=== PATIENT | female | born 1960 | race Caucasian/White ===

== ENCOUNTER 2017-04-10 08:13 | Outpatient (CLI) | payer BC | END 2017-04-10 08:14 | disposition home or self-care (01) | LOC: BICCT 08:13 | PROVIDERS: ATTEND Orthopaedic Surgery | DX: M54.5 Low back pain (principal); M47.816 Spondylosis without myelopathy or radiculopathy, lumbar region; N20.0 Calculus of kidney | CPT/HCPCS: 72131 ==

== ENCOUNTER 2017-05-22 08:12 | Outpatient (CLI) | payer BC ==
--- NOTE | 2017-05-22 11:48 | MRI ---
MRI OF THE LEFT KNEE: DATE: 05/22/17. PROVIDED CLINICAL HISTORY: Left knee pain. FINDINGS: The anterior cruciate ligament, posterior cruciate ligament, mediolateral collateral ligament, and la teral collateral ligamentous complex demonstrate an intact MR appearance, as does the extensor mechan ism. There is subtle grade III signal present involving the body of the lateral meniscus at the tibial art icular surface suspicious for a nondisplaced radial tear. The medial meniscus demonstrates no eviden ce for tear. No focal articular cartilage defect is apparent. The amount of fluid within the knee joint appears physiologic. No focal concerning regional marrow or muscular signal abnormality is apparent. IMPRESSION: Findings suspicious for small partial-thickness nondisplaced radial tear involving the body of the la teral meniscus. POS: [facility]
== END 2017-05-22 08:13 | disposition home or self-care (01) ==
LOC: MRI 08:12
PROVIDERS: ATTEND Family Medicine
DX: S83.242A Other tear of medial meniscus, current injury, left knee, initial encounter (principal)

== ENCOUNTER 2017-07-24 08:07 | Outpatient (CLI) | payer BC ==
--- NOTE | 2017-07-24 10:50 | MRI ---
RIGHT KNEE MRI WITHOUT IV CONTRAST: Date: 07/24/17 HISTORY: 56-year-old female with history of right knee pain without associated injury, meniscal tear, recurrin g injury. FINDINGS: No evidence of joint effusion. Medial and lateral menisci, anterior and posterior cruciate ligaments, collateral ligament complexes, and quadriceps and patellar tendons and extensor mechanism are unrema rkable. No acute osteochondral defect. No abnormal marrow signal. IMPRESSION: No MRI evidence for significant acute internal derangement. POS: [facility]
== END 2017-07-24 08:08 | disposition home or self-care (01) ==
LOC: MRI 08:07
PROVIDERS: ATTEND Orthopaedic Surgery
DX: S83.206A Unspecified tear of unspecified meniscus, current injury, right knee, initial encounter (principal)

== ENCOUNTER 2017-08-10 07:39 | Outpatient (CLI) | payer BC ==
--- NOTE | 2017-08-10 13:56 | MRI ---
MRI RIGHT SHOULDER WITHOUT CONTRAST: Date: 08/10/17 HISTORY: Shoulder pain. COMPARISON: None. FINDINGS: Biceps Tendon: Prior tenodesis biceps tendon at the intertrabecular groove. No intra-articulo biceps tendon is prese nt. Labrum: There is abnormal fluid signal within the superior labrum with evidence of prior labral repair, which may reflect a retear. There is adjacent superior glenoid cartilage thinning. Rotator Cuff: There is mild bursal and articular surface fraying of the supraspinatus and infraspinatus tendons wit hout full thickness perforation. Muscles: Muscle signal and bulk are normal. Bones: There are traction cysts of the greater tuberosity at the supraspinatus tendon and footplate, and inf raspinatus tendon footplate. There is a Type A os acromiale with fluid along the synchondrosis. Mild degenerative disease acromioc lavicular joint. IMPRESSION: 1. 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 2. Evidence of prior labral repair with normal increased fluid signal within the labrum, a sequelae of retear. 3. Prior tenodesis biceps tendon. 4. Mild subacromial/subdeltoid bursal effusion. 5. Mid bursal and articular surface fraying of the rotator cuff otherwise intact. 6. 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 POS: [facility]
== END 2017-08-10 07:40 | disposition home or self-care (01) ==
LOC: SCSMRI 07:39
PROVIDERS: ATTEND Orthopaedic Surgery
DX: M94.211 Chondromalacia, right shoulder (principal); M25.411 Effusion, right shoulder; Z98.890 Other specified postprocedural states

== ENCOUNTER 2017-09-04 08:03 | Outpatient (CLI) | payer BC ==
[2017-09-04] MEDS ORDERED: Iopamidol 370 76% 100 ML VIAL ONE (09:41)
--- NOTE | 2017-09-06 00:54 | HP ---
HISTORY OF PRESENT ILLNESS: A 57-year-old female followed by Dr. Moody. The patient was last seen by me in 04/2010. She is a bariatric patient. In 04/2010, she weighed 129 pounds with a BMI of 22 and I removed 0.25 mm from her band. Her lap band was [place] in [address] Esparza in [place], at th at time she had a BMI of 28. She had this band removed in 2014, converted to a gastric sleeve. She has a history of abdominoplasty with Dr. Kaiden Quinn in 2010, has a history of laparoscopies, lap aroscopic 5 x 10 cm mesh repair of ventral hernia in upper abdomen 02/19/2010 had been performed. Wilmer ramirez reports cramping and feeling gassy in midepigastric left subxiphoid at times. She firs saw us more than 15 years ago. She reports taking [id number] medications to resolve this without reliable relief taking medications such as Nexium and Protonix. These episodes she complains of last 36 occu rred 2-3 times a week, sometimes associated with meals. She denies noting any hernia mass on exam. Exam in my office did not reveal a hernia. She was having this discomfort. At that time, she had he r conversion of her band to sleeve, and there is no mention of a hernia found at that encounter. She had lumbar surgery four years ago, right shoulder surgery in 2017, left shoulder surgery in 2018. S he has undergone a CT scan of abdomen and pelvis at [facility] on 09/04/2017, and ultrasound rev ealing a small 1-2 mm gallbladder polyp and a right renal cyst. CAT scan of the abdomen and pelvis, otherwise unremarkable except for the renal cyst. The patient has typical symptoms of biliary diseas e. With her gallbladder, a small gallbladder polyp or density seen on ultrasound and suggestion of b iliary disease. I have talked to her about laparoscopic cholecystectomy. I have told her I cannot 1 00% guarantee this will relieve her symptoms, but with her symptoms classically biliary, this would p robably benefit her. I do not think she is up-to-date on her colonoscopies. I do not think that she needs an upper endoscopy. Risk of infection, bleeding, visceral and biliary injury explained. She consents. ALLERGIES: MORPHINE, pruritus. TOBACCO: None. ALCOHOL: Rarely. MEDICATIONS: Vitamin C, vitamin D, protein supplements. PAST MEDICAL HISTORY: As noted above, hysterectomy, abdominoplasty, breast surgery, laparoscopic ban d placement, conversion to a sleeve, laparoscopic mesh repair of incisional hernia. REVIEW OF SYSTEMS: A 10-point noncontributory. FAMILY HISTORY: Noncontributory. SOCIAL HISTORY: Father is alive. Mother of lung disease. No family history of coronary ar yeni disease that she knows of. PHYSICAL EXAMINATION: VITAL SIGNS: Weight 139 pounds, height 5 feet 3 inches, blood pressure 122/76, pulse 64, and tempera ture 97 degrees. HEENT: Unremarkable. LUNGS: Clear to auscultation. CARDIAC: Regular rate and rhythm without murmur or gallop. ABDOMEN: Soft, nontender. No hernia masses appreciated. EXTREMITIES: Unremarkable. No ankle edema. NEUROLOGIC: Neurologically intact. LYMPH: No lymphadenopathy. Axilla, neck, groins, palpable carotid pulses. ASSESSMENT AND PLAN: Biliary type symptoms with gallbladder polyp, 2 mm were seen. Recommendations as above. We will schedule when she decides to call. I have informed her that if the symptoms are n ot too bothersome, she can avoid this operation, but she wishes to proceed, hopefully, it can relieve her intermittent discomfort.
== END 2017-09-04 08:04 | disposition home or self-care (01) ==
LOC: BICULT 08:03
PROVIDERS: ATTEND Specialist
DX: R10.9 Unspecified abdominal pain (principal); N20.0 Calculus of kidney; Z98.890 Other specified postprocedural states; K82.4 Cholesterolosis of gallbladder; N28.1 Cyst of kidney, acquired
CPT/HCPCS: 74177; 76705

== ENCOUNTER 2017-09-21 10:31 | Outpatient (CLI) | payer BC ==
[2017-09-21 12:33] LABS: ALT (SGPT) 20 U/L (8-55); AST (SGOT) 21 U/L (5-34); Albumin 4.2 g/dL (3.5-5.0); Alkaline Phosphatase 68 U/L (40-150); Anion Gap 14 mmol/L (10-20); BUN (Urea Nitrogen) 21 mg/dL (9.8-20.1); Bilirubin, Total 0.4 mg/dL (0.2-1.2); Calc. Creatinine Clearance 0 mL/min (70-130); Calcium 9.5 mg/dL (7.8-10.44); Carbon Dioxide 25 mmol/L (22-29); Chloride 109 mmol/L (98-107); Estimated GFR-MDRD 56; Globulin 2.2 g/dL (2.4-3.5); Glucose 93 mg/dL (70-105); Potassium 3.6 mmol/L (3.5-5.1); Protein, Total 6.4 g/dL (6.0-8.3); Sodium 144 mmol/L (136-145)
== END 2017-09-21 10:32 | disposition home or self-care (01) ==
LOC: LABBT 10:31
PROVIDERS: ATTEND Specialist
DX: Z01.818 Encounter for other preprocedural examination (principal); K80.20 Calculus of gallbladder without cholecystitis without obstruction
CPT/HCPCS: 80053; 93005; 93010

== ENCOUNTER 2017-10-02 05:39 | Observation (INO) | payer BC ==
[2017-10-02] MEDS ORDERED: CEFAZOLIN/Water 2 GM/20 ML SYRINGE ONE (06:23)
[2017-10-02] MEDS ORDERED: Ketorolac Tromethamine 30 MG/ML VIAL ONE (06:23)
[2017-10-02] MEDS ORDERED: Fentanyl 250 MCG/5 ML VIAL ONE (06:53)
[2017-10-02] MEDS ORDERED: Midazolam HCl 2 mg/2 ml Vial ONE (07:07)
[2017-10-02] MEDS ORDERED: Bupivacaine HCl 0.5%/Epinephrine 1:200,000/PF 30 ml Vial ONE (07:09)
[2017-10-02] MEDS ORDERED: Scopolamine 1.5 mg/72 hour Patch ONE (07:15)
--- NOTE | 2017-10-02 08:35 | OP ---
DATE O9F PROCEDURE: 10/02/2017 PREOPERATIVE DIAGNOSES: Chronic cholecystitis, cholelithiasis. POSTOPERATIVE DIAGNOSES: Chronic cholecystitis, cholelithiasis. PROCEDURE: Laparoscopic video cholecystectomy. SURGEON: Dr. Moise Cantor ANESTHESIA: General. Local 0.5% Marcaine with epinephrine 30 mL. PROCEDURE IN DETAIL: The patient was taken to the operating room where under general anesthesia, abd omen was prepared with ChloraPrep, draped in routine fashion. Local anesthetic 0.5% Marcaine with ep inephrine infiltrated into skin and subcutaneous tissue about each port site. Infraumbilical incisio n made and pneumoperitoneum to 15 mmHg obtained with the Veress needle, replacing it with a 5 port an d video laparoscope inserted. Infraumbilical incision made. Pneumoperitoneum to 15 mmHg obtained wi th the Veress needle and replacing it with a 5 port. Video laparoscope inserted. Right subxiphoid i ncision made and a 10 port placed. A right subcostal incision made mid clavicular axillary lines and 5 ports placed. Liver appeared to be normal. No other gross abnormalities appreciated. Gallbladde r distended gallbladder fundus grasped and reflected cephalad. Infundibulum grasped laterally. Cyst ic artery and duct dissected free. Critical view obtained with dissection of the cystic artery and d uct and pericholecystic area for critical view. Cystic artery and duct doubly clipped proximally, di vided, and gallbladder dissected free from liver bed obtaining good hemostasis prior to division of f inal peritoneal attachments. Gallbladder and contents removed and submitted to Pathology. Good hemo stasis ensured with the cautery. Irrigant and pneumoperitoneum evacuated. All this instruments soto laurel and all skin incisions approximated with interrupted subdermal 4-0 Monocryl and DermaGlue applied .
[2017-10-02] MEDS ORDERED: Promethazine HCl 25 MG/ML VIAL ONE (08:52)
[2017-10-02] MEDS ORDERED: Ondansetron ODT 4 MG TAB ONE (14:20)
[2017-10-02] MEDS ORDERED: diphenhydrAMINE 50 MG/ML VIAL ONE (14:48)
[2017-10-02] MEDS ORDERED: PROPOFOL 200 MG/20 ML VIAL ONE (14:48)
[2017-10-02] MEDS ORDERED: Metoclopramide HCl 10 MG/2 ML VIAL ONE (14:48)
[2017-10-02] MEDS ORDERED: Glycopyrrolate 0.2 MG/ML 5 ML SYRINGE ONE (14:48)
[2017-10-02] MEDS ORDERED: Dexamethasone 20 MG/5 ML VIAL ONE (14:48)
[2017-10-02] MEDS ORDERED: Lidocaine 1% PF 5 ML VIAL ONE (14:48)
[2017-10-02] MEDS ORDERED: Ondansetron HCl/PF 4 MG/2 ML Vial ONE (14:48)
[2017-10-02 19:50] VITALS: BMI 23.6
[2017-10-02] MEDS ORDERED: Ondansetron ODT 4 MG TAB PO PRN (20:44)
[2017-10-02] MEDS ORDERED: Acetaminophen 500 MG TAB PO PRN (20:51)
[2017-10-02] MEDS ORDERED: Ibuprofen 600 MG TAB PO PRN (20:52)
[2017-10-02] MEDS ORDERED: traMADol HCl 50 MG TAB PO PRN (20:53)
[2017-10-02] MEDS: traMADol HCl 50 MG TAB PO PRN (21:04)
[2017-10-02] MEDS: Lactated Ringer's 1,000 ML IV SCH (21:06)
[2017-10-03] MEDS ORDERED: diphenhydrAMINE 25 MG CAP PO PRN (04:21)
[2017-10-03] MEDS: traMADol HCl 50 MG TAB PO PRN (04:52)
[2017-10-03] MEDS: Lactated Ringer's 1,000 ML IV SCH (04:54)
[2017-10-03 08:22] VITALS: BP 106/70; TEMP 98
[2017-10-03] MEDS ORDERED: Ascorbic Acid 500 mg Chewable Tablet PO SCH (09:00)
[2017-10-03] MEDS ORDERED: Multivitamin W/ Minerals 1 TAB PO SCH (09:00)
--- NOTE | 2017-10-03 13:31 | DIS ---
DISCHARGE DIAGNOSES: 1. Chronic cholecystitis, cholelithiasis. 2. Postoperative nausea requiring overnight observation and hydration. HISTORY: A 57-year-old female with biliary symptoms. She had a gallbladder ultrasound demonstrating what was thought to be a gallbladder polyp or small stones. She had typical biliary symptoms and sh e was admitted for a laparoscopic cholecystectomy. Postoperatively, experiencing nausea, required ad mission overnight and observation and discharged home now to resume her home medications. DISCHARGE INSTRUCTIONS: Activity as tolerated. Resume her bariatric diet status post sleeve gastrec cristofer in the past. No activity restrictions. No lifting restrictions. Sent home with Ultram and Zof ran as needed if necessary.
== END 2017-10-03 10:40 | disposition home or self-care (01) ==
LOC: SDC 05:39 → SURG B 19:21
PROVIDERS: ADMIT Specialist; ATTEND Specialist
PROC: 0FT44ZZ Resection of Gallbladder, Percutaneous Endoscopic Approach (ICD-10-PCS; principal; 2017-10-02)
DX: K81.1 Chronic cholecystitis (principal); Z88.8 Allergy status to other drugs, medicaments and biological substances; Z79.899 Other long term (current) drug therapy
CPT/HCPCS: 88304; 96374; G0378; J0131; J0670; J1100; J1200; J1885; J2001; J2250; J2405; J2550; J2704; J2765; J3010; Q0162

== ENCOUNTER 2017-12-20 19:30 | Outpatient (CLI) | payer BC | END 2017-12-20 19:31 | disposition home or self-care (01) | LOC: SLEEPLAB 19:30 | PROVIDERS: ATTEND Family Medicine | DX: R06.89 Other abnormalities of breathing (principal); J98.8 Other specified respiratory disorders | CPT/HCPCS: 95806 ==

== ENCOUNTER 2024-01-16 13:15 | Outpatient (CLI) | payer BC | END 2024-01-16 13:16 | disposition home or self-care (01) | LOC: BICRAD 13:15 | PROVIDERS: ATTEND Podiatrist | DX: M79.672 Pain in left foot (principal); M77.52 Other enthesopathy of left foot and ankle; Z98.890 Other specified postprocedural states ==